=== PATIENT | female | born 1980 | race Caucasian/White ===

== ENCOUNTER 2018-11-29 05:31 | Day surgery (SDC) | payer BC ==
[~2018-11-29] VITALS: Ht 162.6 cm; Wt 85.7 kg
--- NOTE | ~2018-11-29 | O ---
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 POSTOPERATIVE DIAGNOSIS: Medial femoral condyle chondromalacia. PROCEDURE: Right knee arthroscopy with debridement of medial femoral condyle chondromalacia. SURGEON: Yosef Madrigal MD INDICATIONS: This 38-year-old female complains of right knee pain, which has been a persistent and somewhat progressive problem for some time. She has tried conservative measures without benefit. She has elected to go ahead with diagnostic arthroscopy and debridement as indicated. DESCRIPTION OF PROCEDURE: The patient was taken to the Operating Room where she was placed under general anesthesia. Prophylactic intravenous antibiotics were administered. The right knee and leg were meticulously prepped and draped and a thigh tourniquet inflated to 300 mmHg. A lateral suprapatellar inflow cannula was placed and the knee was inflated with normal saline. The arthroscope and shaver were introduced and various compartments were sequentially visualized and documented with arthroscopic photography. The medial compartment did reveal moderate degenerative chondromalacia with areas of significant cartilage loss over most of the weightbearing surface of the medial femoral condyle. The margins of the defect were notable for some loose delaminating cartilage. These areas were debrided, getting back to more smooth, even and stable margin. The mid portion did not have any areas of complete loss of cartilage, but there was significant thinning and fraying with generalized chondromalacia, which I would grade at 2-3 in the mid weightbearing surface. The surrounding aspect was in better shape. The corresponding surface on the medial tibial plateau was in good shape without significant cartilage damage and no debridement there was necessary. The medial meniscus appeared to be entirely intact and stable and no debridement there was necessary. The remainder of the knee was essentially normal. The intercondylar notch revealed normal cruciate ligaments, which were functioning nicely. [address] [address] OPERATIVE REPORT Name: JUANI MEJIAS Room #: 150-5 [facility]#: [id number] Admission: 11/29/18 Attend Phys: Yosef Madrigal MD Discharge: Date of : 84 Report #: [id number] abnormalities here noted. The lateral compartment revealed normal cartilage on the lateral femoral condyle and the lateral tibial plateau. The lateral meniscus appeared to be intact and stable and no debridement was necessary. The patellofemoral articulation revealed good cartilage on the patella and the trochlear region of the distal femur. The patellar tracked nicely and appeared to be stable. The suprapatellar pouch was normal. The entire knee was copiously irrigated. All excess fluid was evacuated of the knee. The knee was then injected with 80 mg of Depo-Medrol and 20 mL of 0.5% Marcaine with epinephrine. The puncture sites were closed with interrupted nylon suture. Sterile dressing was applied. The patient was awakened and returned to Recovery Room in good condition. By: [id number] Yosef Madrigal MD /nt
[~2018-11-29 05:31] MED LIST: IBUPROFEN 200200 M1 PO; TUMS PO
[2018-11-29 06:29] VITALS: BP 118/76
[2018-11-29 09:59] VITALS: BP 118/76
== END 2018-11-29 11:10 | disposition home or self-care (01) ==
LOC: OR 05:31 → TBA 05:31 → OR 11:10
DX: M94.261 Chondromalacia, right knee (principal); F41.9 Anxiety disorder, unspecified; K21.9 Gastro-esophageal reflux disease without esophagitis; F17.210 Nicotine dependence, cigarettes, uncomplicated; Z90.49 Acquired absence of other specified parts of digestive tract; Z98.890 Other specified postprocedural states; Z79.899 Other long term (current) drug therapy; Z88.8 Allergy status to other drugs, medicaments and biological substances
CPT/HCPCS: 50010; 50101; 50405; 51038; 54170; 56526; 57103; 62110; 62900; 70005